=== PATIENT | male | born 1985 | race Caucasian/White ===

== ENCOUNTER 2019-03-19 19:16 | Emergency (ER) | payer SELFPAY ==
[~2019-03-19] VITALS: Ht 180.3 cm; Wt 84.0 kg
[2019-03-19] MEDS ORDERED: TETRACAINE 0.5% OPHTH DROPS 4ML RIGHTEYE ONE (20:45)
[2019-03-19] MEDS ORDERED: IBUPROFEN 600MG TABLET PO ONE (21:00)
[2019-03-19] MEDS ORDERED: ACETAMINOPHEN 500MG TABLET PO ONE (21:00)
[2019-03-19 21:09] VITALS: BP 128/89
== END 2019-03-19 21:35 | disposition home or self-care (01) ==
LOC: ER 19:16
DX: H16.001 Unspecified corneal ulcer, right eye (principal)
CPT/HCPCS: 99284; Z7610